=== PATIENT | male | born 1970 | race Caucasian/White ===

== ENCOUNTER 2016-07-05 16:16 | Inpatient (IN) ==
[2016-07-05] MEDS ORDERED: TYLENOL PO ONE (16:22)
[2016-07-05] MEDS ORDERED: TYLENOL ONE (16:22)
[2016-07-05] MEDS ORDERED: NS 1,000 ML IV ONE ×2 (16:23→17:14)
[2016-07-05 16:58] LABS: MANUAL DIFF NEEDED? NO
[2016-07-05 17:05] LABS: BASO% 0.1 % (0.0-0.8); EOS# 0.07 X1000 (0.0-0.7); EOS% 0.4 % (0.0-10.0); HEMATOCRIT 39.8 % (42.0-52.0); HEMOGLOBIN 12.9 g/dL (14.0-18.0); IMM GRAN# 0.04 X1000 (0.0-0.04); IMM GRAN% 0.3 % (0.0-0.5); LYMPH# 1.72 X1000 (1.2-3.4); LYMPH% 10.9 % (20.5-51.1); MCH 25.7 PG (27-31); MCHC 32.4 g/dL (33-37); MCV 79.4 FL (81-99); MONO# 1.86 X1000 (0.11-0.59); MONO% 11.8 % (1.7-9.3); MPV 11.6 FL (7.4-10.4); NEUT% 76.5 % (42.2-75.2); PLT 214 X1000 (130-400); RBC 5.01 XMIL (4.7-6.1)
[2016-07-05] MEDS ORDERED: ZOSYN 3.375 GM/NS 3.375 GM/50 ML IVPB IV ONE (17:14)
[2016-07-05] MEDS ORDERED: VANCOMYCIN 1 GM/NS 1 GM/250 ML IVPB IV ONE (17:14)
--- NOTE | 2016-07-05 17:14 | Diag Imaging Result Document ---
PROCEDURE NAME: CHEST-2 VIEWS - 07/05/2016 CHEST, TWO VIEWS: COMPARISON: 03/10/2016. INDICATION: Sepsis screen. FINDINGS: There is focal airspace opacity involving the left upper lobe posteriorly. Findings are suspicious for pneumonia. Followup is recommended to document complete clearing. There is cardiomegaly. The right lung is clear. No effusion. IMPRESSION: Left upper lobe infiltrate. Followup is recommended to document complete clearing and exclude an underlying parenchymal mass.
[2016-07-05] MEDS ORDERED: ZOFRAN IV PRN ×2 (17:15→18:30)
[2016-07-05] MEDS ORDERED: OFIRMEV 1000 MG/ISOTONIC SOLN 1,000 MG/100 ML BOTTLE IV ONE (17:15)
--- NOTE | 2016-07-05 17:18 | PROVIDER DOCUMENTATION ---
This chart was entered by Tu Devi Scribe, acting as scribe for Jules Nolan PA. HPI-Fever - General Chief Complaint: Fever Stated Complaint: fever x2 days Time Seen by Provider: 07/05/16 16:22 Source: patient Allergies/Adverse Reactions: Patient Allergies Allergy/AdvReac Type Severity Reaction Status Date / Time doxycycline Allergy ABDOMINAL Verified 07/05/16 16:21 PAIN Sulfa (Sulfonamide Allergy RASH Verified 03/10/16 14:55 Antibiotics) sulfamethoxazole Allergy RASH Verified 03/10/16 14:55 [From Bactrim] trimethoprim [From Bactrim] Allergy RASH Verified 03/10/16 14:55 Home Medications: Home Medication List Medication Instructions Recorded Confirmed Last Taken Type Aspirin 81 mg PO DAILY 07/31/14 03/11/16 07/30/14 History Dapsone 25 mg PO DAILY 07/31/14 03/11/16 03/10/16 History Ezetimibe [Zetia] 10 mg PO DAILY 07/31/14 03/11/16 03/10/16 08:00 History Mycophenolate Mofetil [Cellcept] 3 cap PO BID 07/31/14 03/11/16 03/10/16 08:00 History Omeprazole 40 mg PO DAILY 07/31/14 03/11/16 03/10/16 08:00 History Pioglitazone HCl [Actos] 45 mg PO DAILY 07/31/14 03/11/16 07/30/14 History Tacrolimus [Prograf] 3 cap PO BID 07/31/14 03/11/16 03/10/16 08:00 History Metoprolol [Lopressor] 1 tab PO BID 11/03/15 03/11/16 03/10/16 08:00 History ATORVAstatin [Lipitor] 40 mg PO DAILY #30 tablet 03/16/16 Unknown Rx Clopidogrel [Plavix] 75 mg PO DAILY #30 tablet 03/16/16 Unknown Rx Insulin Glargine [Lantus] 55 unit SUBQ QAM #0 insuln.pen 03/16/16 Unknown Rx Lisinopril 5 mg PO DAILY #0 03/16/16 03/11/16 03/10/16 08:00 Rx - History of Present Illness-Fever Nature of Presenting Problem: patient is a 45 y/o M that presents to the ER with fever x 2 days. patient has history of recurrent UTI's due urostomy. patient reports having cough and shortness of breath as well. No AMS, n/v/d, or rashes noted Fever Severity/Quality: reports: greater than 102 F Onset/Duration: reports: gradual, 1-3 hours ago, 2 days ago Timing: reports: constant Severity: reports: moderate, severe Context: reports: indwelling beard (urostomy tube) Recent Illness?: reports: none Cognitive Baseline: alert, oriented x3 Modifying Factors: worse with: coughing Associated Symptoms: reports: cough, fever/chills, genitourinary problems, shortness of breath. denies: chest pain, diarrhea, dizziness, EENT symptoms, joint pain, nausea, rash, sensory/motor loss, vomiting Similar Symptoms Previously?: Yes Recently seen or treated by another doctor?: No Review of Systems - Adult - REVIEW OF SYSTEMS - ADULT Constitutional: reports: chills, fever Eyes: denies: decreased vision, blurred vision, double vision Ears, Nose, Mouth & Throat: denies: ear pain, sinus problem, throat pain Cardiovascular: denies: chest pain, palpitations, syncope Respiratory: reports: cough. denies: shortness of breath, wheezing Gastrointestinal: denies: abdominal pain, diarrhea, nausea, vomiting Genitourinary: reports: dysuria. denies: hesitency, incontinence Musculoskeletal: reports: no symptoms reported Integumentary: reports: no symptoms reported Neurological: reports: no symptoms reported Psychiatric: reports: no symptoms reported Endocrine: reports: no symptoms reported Hematologic/Lymphatic: reports: no symptoms reported Allergic/Immunologic: reports: no symptoms reported All Other Systems: Reviewed and Negative Past History - Adult - PAST MEDICAL HISTORY-ADULT Review of Records: reports: Old Records Reviewed, Nursing Assessment Review, Medications Reviewed Respiratory: reports: COPD Genitourinary: reports: kidney disease, other (urostomy) Endocrine/Immune: reports: Diabetes - PRIOR SURGERIES/PROCEDURES Surgical/Procedure History: reports: indwelling device (urostomy), other ( kidney transplant) - PRIOR HOSPITALIZATIONS Prior Hospitalizations: reports: for other non-related - IMMUNIZATION STATUS Childhood Immunizations: See Nurse Assessment Flu Vaccine: See Nurse Assessment - FAMILY HISTORY Family History: reviewed, not pertinent - SOCIAL HISTORY Smoking: cigarettes, less than 1 pack/day Living Situation: alone Physical Exam-General - PHYSICAL EXAM-ADULT Initial Vital Signs Reviewed: Yes - CONSTITUTIONAL General Appearance: alert, moderate distress, other (chronic ill appearing) - EYES Eyes: PERRL/EOMI, pink conjunctivae - HEAD, EARS, NOSE, MOUTH & THROAT HENMT: normocephalic/atraumatic, moist mucous membranes, normal ENT inspection - NECK Neck: full range of motion, normal inspection. negative: lymphadenopathy - RESPIRATORY Respiratory: no respiratory distress, no accessory muscle use, rhonchi ( scattered bilateral) - CARDIOVASCULAR Cardiovascular: no gallop, no murmur, tachycardia - GASTROINTESTINAL (ABDOMEN) Abdominal Exam: normal bowel sounds, non tender, soft, other (urostomy tube noted) - MUSCULOSKELETAL Extremity: normal range of motion, normal inspection, no pedal edema - SKIN Integumentary: normal color, warm/dry - NEUROLOGIC Neurologic: grossly normal, no motor/sensory deficits - PSYCHIATRIC Psych/Mental Status: normal mood/affect, normal thought content, normal thought process, oriented x 3 Progress - PLAN OF CARE/RESULTS Progress/Plan/Lab Results: Vital Signs - 8 hr 07/05/16 16:17 07/05/16 17:10 Temperature 102.4 F H Pulse Rate 118 H 104 H Respiratory Rate 18 18 Blood Pressure 191/91 130/65 O2 Sat by Pulse Oximetry 93 L 93 L Laboratory Results - last 24 hr 07/05/16 16:40 WBC 15.73 H RBC 5.01 Hgb 12.9 L Hct 39.8 L MCV 79.4 L MCH 25.7 L MCHC 32.4 L RDW Std Deviation 14.7 H Plt Count 214 MPV 11.6 H Immature Gran % (Auto) 0.3 Neut % (Auto) 76.5 H Lymph % (Auto) 10.9 L [place] % (Auto) 11.8 H Eos % (Auto) 0.4 Baso % (Auto) 0.1 Immature Gran # (Auto) 0.04 Neut # (Auto) 12.02 H Lymph # (Auto) 1.72 [place] # (Auto) 1.86 H Eos # (Auto) 0.07 Baso # (Auto) 0.02 Orders Category Date Time Status Admit - [facility] Routine AdmDCTranf 07/05/16 17:15 Ordered Activity - Bed Rest with BRP ORDERED Care 07/05/16 17:15 Active Call Admitting on Arrival AT ADMISSION Care 07/05/16 17:16 Active Saline Loc NOW Care 07/05/16 16:23 Active Vital Signs Order Q 8-HR .ASSESS Care 07/05/16 17:15 Active Heart Healthy Diet Diet 07/05/16 17:16 Active CHEST-2 VIEWS [RAD] Stat Exams 07/05/16 16:23 Draft ABG [RESP] Routine Lab 07/05/16 17:06 Ordered BLOOD CULTURE [BLDCUL] Stat Lab 07/05/16 16:23 Ordered CBC WITH DIFF [HEME] Stat Lab 07/05/16 16:40 Completed COMPREHENSIVE METABOLIC PANEL [CHEM] Stat Lab 07/05/16 16:40 Received LACTATE, PLASMA [CHEM] Stat Lab 07/05/16 16:40 Received MAGNESIUM [CHEM] Stat Lab 07/05/16 16:40 Received PROTIME WITH INR PL [COAG] Stat Lab 07/05/16 16:[address] [COAG] Stat Lab 07/05/16 16:[address] W/POSS RFLX CULT [URINALYSIS] Stat Lab 07/05/16 17:01 Received 0.9% Sodium Chloride Inj [Ns] 1,000 ml Med 07/05/16 17:14 Active IV 100 mls/hr 0.9% Sodium Chloride Inj [Ns] 1,000 ml Med 07/05/16 16:23 Active IV 999 mls/hr Acetaminophen [Ofirmev 1000 mg/Isotonic Soln] Med 07/05/16 17:15 Active 1,000 mg in 100 ml IV NOW Acetaminophen [Tylenol] Med 07/05/16 16:22 Discontinued 1,000 mg .ROUTE .STK-MED ONE Acetaminophen [Tylenol] Med 07/05/16 16:22 Discontinued 1,000 mg PO NOW ONE Acetaminophen [Tylenol] Med 07/05/16 17:15 Active 650 mg PO Q6H PRN PRN Ondansetron [Zofran] Med 07/05/16 17:15 Active 4 mg IV Q4H PRN PRN Piperacil/Tazobact 3.375 gm/Ns [Zosyn 3.375 gm/Ns] 50 Med 07/05/16 17:14 Ordered ml IV NOW Vancomycin 1 gm/Ns Med 07/05/16 17:14 Active 1 gm in 250 ml IV NOW Telemetry [OM.EQ] Routine Oth 07/05/16 17:15 Active Transfer/Admit Order [TRANSFER] Routine Transfer 07/05/16 17:17 Ordered Result Diagrams: 07/05/16 16:40 - XRAY 1 XRAY Study: Chest Impression: Abnormal XRAY Interpretation: JULIEN infiltrate - CONSULTS/PCP/HOSPITALIST Notification #1 *Consult/PCP/Hospitalist*: domestic travel consultant for hospitalist Time Discussed: 17:12 Consult Disposition: Admit Departure - Departure Time of Disposition Decision: 17:17 DIAGNOSIS: Pneumonia Qualifiers: Pneumonia type: due to unspecified organism Laterality: left Lung location: upper lobe of lung Qualified Code(s): J18.1 - Lobar pneumonia, unspecified organism Disposition: ADMITTED INPATIENT 09 Certified Medical Emergency: Emergent Condition: Stable - Critical Care Note This patient required my direct & personal management of CC.: Yes Total Time (mins): 15 Critical Care Statement: This patient required my direct personal management to treat or rule out processes, the absence of which, could potentiallly result in sudden, clinically significant life or limb threatening deterioration. Attestation - Physician/ MORIAH Attestation Patient care was provided by Advanced Practice Provider:: Yes Advanced Practice Provider:: Jules Nolan Advanced Practice Provider documentation review:: The Mid-level provider documentation, treatment plan and medical decision making was reviewed by the physician who agrees with all treatment and medical decision making by the MLP. This chart was documented by the indicated scribe, (Tu Devi, Iram) and accurately reflects the services I performed and decisions made by me, Jules Nolan PA, as attested by the provider's signature.
[2016-07-05 17:19] LABS: BE -5.7 mmoll (-3.0-3.0); BLOOD TYPE ARTERIAL; DRAW SITE R BRACHIAL; METHB 0.9 % (0.0-1.5); O2(CT) 15.2 mL/dL (15.0-23.0); PCO2(98.6) 30 mmHg (35-45); PO2(98.6) 71 mmHg (60-100); SAMPLE BLOOD; SAO2 92.5 % (95.0-100.0); pH(98.6) 7.39 (7.35-7.45)
[2016-07-05 17:21] LABS: ALLEN TEST NO; MODALITY ROOM AIR
[2016-07-05 17:26] LABS: BILIRUBIN URINE NEGATIVE (NEGATIVE); BLOOD URINE 2+ (NEGATIVE); CLARITY VERY CLOUDY (CLEAR); COLOR YELLOW; LEUKOCYTES URINE 2+ (NEGATIVE); NITRITE URINE NEGATIVE (NEGATIVE); PROTEIN URINE 2+(100 mg/dL) mg/dL (NEGATIVE); UROBILINOGEN URINE NORMAL
[2016-07-05 17:30] LABS: URINE CULTURE PL NEEDED? YES; URINE EPITHELIAL CELLS <10 /HPF (<10); URINE RBC <10 /HPF (<10); URINE SOURCE CLEAN CATCH; URINE WBC 20-40 /HPF (<10)
[2016-07-05 17:43] LABS: AGAP 14; ALKALINE PHOSPHATASE 102 U/L (32-122); BUN 22 mg/dL (8-22); CALCIUM 9.9 mg/dL (8.8-10.2); CHLORIDE 89 mmol/L (98-107); COSMO 268; GOT 8 U/L (10-34); GPT 9 U/L (10-44); MAGNESIUM 1.5 mg/dL (1.5-2.7); POTASSIUM 3.9 mmol/L (3.5-5.1); SODIUM 122 mmol/L (136-145); TCO2 18 mmol/L (25-35)
[2016-07-05 17:49] LABS: INR 1.01 (0.86-1.15); PROTIME 13.6 Seconds (12.1-15.5)
[2016-07-05 17:50] LABS: PTT PL 36.5 Seconds (22.6-43.9)
[2016-07-05] MEDS ORDERED: HUMULIN R IV ONE (17:51)
[2016-07-05] MEDS ORDERED: HUMULIN R (PARKWAY) ONE (18:00)
--- NOTE | 2016-07-05 18:29 | HISTORY AND PHYSICAL ---
CHIEF COMPLAINT: Fever and chills, cough, shortness of breath. HISTORY OF PRESENT ILLNESS: This is a 45-year-old male with a prior history of type 2 diabetes, peripheral vascular disease, hyperlipidemia, hypertension, renal transplant in 2004, who presented to the emergency room complaining of 48 hours of fever, chills, cough, and shortness of breath. He states prior to these symptoms he felt like he was in his normal state of health. 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 He does report a temperature higher than 102 at home. He denied any chest pain, palpitations, PND or orthopnea. On arrival, he did have a temperature of 102.4 degrees, with a heart rate of 118, with room air saturations of 93%. Chest x-ray revealed a left upper lobe infiltrate. He was noted to have a white count of 15. Blood cultures and urine cultures were obtained in the emergency room. He was given a liter of fluid bolus, vancomycin and Zosyn, and is being admitted for further evaluation and treatment. PAST MEDICAL HISTORY: Insulin-dependent diabetes mellitus with noncompliance, obstructive sleep apnea, COPD, peripheral vascular disease, hyperlipidemia, hypertension, gastroesophageal reflux disease, congenital kidney disease. PAST SURGICAL HISTORY: Previous vascular dialysis access in his right groin, urostomy as a child, and renal transplant in 2004, femoral-femoral bypass with open thrombectomy of the right superficial femoral artery in March 2016. SOCIAL HISTORY: He smokes 2 packs a day. He drinks 1 or 2 beers a week. He denies illicit drug use. ALLERGIES: Sulfa and IV Bactrim. HOME MEDICATIONS: A list will be obtained. REVIEW OF SYSTEMS: Fourteen point review of systems was discussed with patient, with pertinent positives stated in HPI. He denied chest pain, palpitations, dizziness, syncope, nausea, vomiting, diarrhea, constipation, black or bloody vomitus, black or bloody stools, hematuria, dysuria, frequency, urgency. PHYSICAL EXAMINATION: GENERAL: This is a 45-year-old male, who is lying in the bed, in no distress. VITAL SIGNS: Blood pressure is 130/65, with a heart rate of 104, respirations are 18, oxygen saturation is 93% on room air. HEENT: Head is normocephalic, atraumatic. Pupils equal, round, react to light. EOMs are intact. Sclerae anicteric. Mucous membranes are moist. NECK: Supple with trachea midline. CARDIOVASCULAR: Regular rate and rhythm. Tachycardic. S1 and S2 appreciated. PULMONARY: He does have scattered rhonchi throughout with no increased work of breathing noted. GASTROINTESTINAL: Abdomen is soft, nontender, nondistended with bowel sounds in all 4 quadrants. Urostomy right lower quadrant is intact with stoma pink. EXTREMITIES: No clubbing, cyanosis, or edema. SKIN: Warm and dry. DIAGNOSTIC DATA: WBC is 15.7, with hemoglobin 12.9, hematocrit 39.8, and platelets of 214,000. Sodium is 122, potassium 3.9, BUN 22, creatinine 1.2, with a glucose of 434. Chest x-ray revealed left upper lobe infiltrate. ASSESSMENT: 1. Left upper lobe pneumonia. 2. Fever. 3. Sepsis most likely secondary to #1. 4. Hyponatremia. 5. Diabetes mellitus, uncontrolled, with hyperglycemia. 6. Hypertension. 7. History of chronic obstructive pulmonary disease. 8. Obstructive sleep apnea. 9. Gastroesophageal reflux disease. 10. Status post renal transplant in 2004. 11. Peripheral artery disease status post femoral-femoral bypass with thrombectomy of the right superficial femoral artery in March 2016. PLAN: The patient will be admitted to the hospital. We will give supplemental oxygen. Blood cultures were drawn in the emergency room. A urine culture is pending. He was given vancomycin and Zosyn. We will continue these. We will identify and continue his home medications as appropriate. He will be placed on pattern blood glucose with sliding scale insulin. We will trend labs. We will continue with IV hydration, and replete sodium. Corrected sodium for blood sugar is 129, we will follow labs. He will be placed on telemetry. Further treatments pending hospital course. Dictated by CARLINE Al for Fabrice Almonte MD cc: CARLINE Al MD
[2016-07-05] MEDS ORDERED: VANCOMYCIN IV PER PHARMACY MISC SCH (18:30)
[2016-07-05] MEDS ORDERED: VANCOMYCIN 2,300 MG in NS 500 ML IV ONE (20:00)
[2016-07-05] MEDS: NS 1,000 ML IV SCH (20:00)
[2016-07-05] MEDS: HUMALOG DOSE (PARKWAY) SUBQ SCH (21:57)
[2016-07-05] MEDS: TYLENOL PO PRN (22:02)
[2016-07-05] MEDS ORDERED: NICODERM PATCH TD PRN (23:33)
[2016-07-06] MEDS: ZOSYN 3.375 GM/NS 3.375 GM/50 ML IVPB IV SCH ×3 (02:53→08:12)
[2016-07-06] MEDS: TYLENOL PO PRN ×3 (04:59→16:48)
[2016-07-06] MEDS: HUMALOG DOSE (PARKWAY) SUBQ SCH ×3 (06:20→16:49)
[2016-07-06 07:05] LABS: HEMATOCRIT 35.7 % (42.0-52.0); HEMOGLOBIN 11.2 g/dL (14.0-18.0); MCH 25.1 PG (27-31); MCHC 31.4 g/dL (33-37); MPV 11.7 FL (7.4-10.4); RBC 4.46 XMIL (4.7-6.1)
[2016-07-06 07:24] LABS: AGAP 15; ALBUMIN 3.5 g/dL (3.5-5.0); ALKALINE PHOSPHATASE 97 U/L (32-122); BUN 19 mg/dL (8-22); CHLORIDE 94 mmol/L (98-107); COSMO 269; GOT 11 U/L (10-34); GPT 9 U/L (10-44); MAGNESIUM 1.4 mg/dL (1.5-2.7); POTASSIUM 4.3 mmol/L (3.5-5.1); SODIUM 126 mmol/L (136-145); TCO2 17 mmol/L (25-35); TOTAL PROTEIN 6.4 g/dL (6.3-8.3)
[2016-07-06] MEDS: NS 1,000 ML IV SCH (08:10)
[2016-07-06] MEDS ORDERED: MAGNESIUM SULFATE 2 GM/S.W.I. 2 GM/50 ML IVPB IV ONE (08:22)
--- NOTE | 2016-07-06 08:49 | PROGRESS NOTE ---
DATE: 07/06/2016 SUBJECTIVE: Patient without any new complaints today. He notes that he is feeling a little bit better. Did have a fever yesterday. Had increased cough and congestion yesterday, but notes this morning he actually seems to be turning the corner per his words. States that he is feeling better. He is having less cough. He actually is hungry and wants to eat breakfast. OBJECTIVE: Vital Signs: On physical, T-max 102.7, pulse 95, respiratory 20, BP 157/50, satting 95% on room air. General: Patient is an awake, alert, disheveled-appearing male who is in no current respiratory distress. He is sitting in the bed watching television. HEENT: Normocephalic. Neck: Supple. CV: Regular rate. Chest: Decreased breath sounds bilaterally. No apparent wheezing. Positive rhonchi throughout. No apparent increased work of breathing. Extremities: Moves all extremities. Neurologic: No focal changes. Skin: Warm and dry. No rashes. LABS: WBCs 11, sodium 126, glucose 343, magnesium 1.4. ASSESSMENT: 1. Hypomagnesemia. Will replace. 2. Leukocytosis, improving. 3. Hyponatremia, improving. 4. Sepsis. Continue antibiotics. 5. Left upper lobe pneumonia. 6. Fever. 7. Diabetes. Will continue sliding scale. Continue his home dose of insulin and will follow. 8. History of obstructive sleep apnea. 9. Peripheral artery disease status post femoral bypass with thrombectomy of right superficial femoral artery in March 2016. PLAN: As noted, we will continue vancomycin and Zosyn. Will continue sliding scale insulin. Breathing treatments. We will continue oxygen and further orders as needed. cc: Fabrice Almonte MD
[2016-07-06] MEDS ORDERED: PRILOSEC PO SCH (09:00)
[2016-07-06] MEDS ORDERED: ACTOS PO SCH (09:00)
[2016-07-06] MEDS ORDERED: DAPSONE PO SCH (09:00)
[2016-07-06] MEDS ORDERED: PRINIVIL PO SCH (09:00)
[2016-07-06] MEDS ORDERED: PROGRAF PO SCH (09:00)
[2016-07-06] MEDS ORDERED: ASPIRIN PO SCH (09:00)
[2016-07-06] MEDS ORDERED: CELLCEPT PO SCH (09:00)
[2016-07-06] MEDS ORDERED: VANCOMYCIN 1,700 MG in NS 250 ML IV SCH (14:00)
[2016-07-06] MEDS ORDERED: MERREM 1 GM in NS 50 ML IV SCH (15:00)
[2016-07-06 15:55] LABS: BLOOD TYPE ARTERIAL; DRAW SITE R BRACHIAL; METHB 0.8 % (0.0-1.5); O2(CT) 15.4 mL/dL (15.0-23.0); PCO2(98.6) 26 mmHg (35-45); PO2(98.6) 83 mmHg (60-100); SAMPLE BLOOD; SAO2 93.1 % (95.0-100.0); THB 11.8 g/dL (11.5-17.4); pH(98.6) 7.46 (7.35-7.45)
[2016-07-06 15:57] LABS: MODALITY ROOM AIR
--- NOTE | 2016-07-06 16:09 | Diag Imaging Result Document ---
PROCEDURE NAME: CHEST-2 VIEWS - 07/06/2016 FRONTAL AND LATERAL CHEST, 2 VIEWS: FINDINGS: There is a dense infiltrate in the mid left lung. I believe this is in the superior segment of the left lower lobe. This is larger than it was on the prior exam. The right lung remains well expanded and clear. The heart is mildly enlarged. The vessels are not distended. No pleural effusions. IMPRESSION: Overall worsening in the left lower lobe.
[2016-07-06] MEDS ORDERED: MOTRIN PO ONE (16:27)
[2016-07-06] MEDS ORDERED: 1/2 NS 1,000 ML IV SCH (19:13)
[2016-07-06] MEDS ORDERED: APRESOLINE IV PRN (19:14)
[2016-07-06] MEDS ORDERED: OFIRMEV 1000 MG/ISOTONIC SOLN 1,000 MG/100 ML BOTTLE IV PRN (19:25)
[2016-07-06] MEDS ORDERED: ZOFRAN IV PRN (19:42)
[2016-07-06] MEDS ORDERED: INSULIN PEN NEEDLES ONE (20:42)
[2016-07-06] MEDS: CELLCEPT PO SCH (20:44)
[2016-07-06] MEDS: LANTUS SUBQ SCH (20:44)
[2016-07-06] MEDS: PRINIVIL PO SCH (20:45)
[2016-07-06] MEDS: ZOCOR PO SCH (20:45)
[2016-07-06] MEDS: ZYVOX PO SCH (20:45)
[2016-07-06] MEDS: PROGRAF PO SCH (20:45)
[2016-07-06] MEDS ORDERED: LANTUS INSULIN (PARKWAY) SUBQ SCH (21:00)
[2016-07-06] MEDS ORDERED: ZOCOR PO SCH (21:00)
[2016-07-06] MEDS ORDERED: ZYVOX PO SCH (21:00)
[2016-07-06] MEDS: HUMALOG SUBQ SCH (22:00)
[2016-07-06] MEDS: MERREM 1 GM in NS 50 ML IV SCH (22:22)
[2016-07-07] MEDS: HUMALOG SUBQ SCH ×4 (06:56→20:02)
[2016-07-07] MEDS: NS 1,000 ML IV SCH ×3 (06:58→21:22)
[2016-07-07 07:04] LABS: HEMATOCRIT 33.7 % (42.0-52.0); HEMOGLOBIN 10.5 g/dL (14.0-18.0); MCH 25.4 PG (27-31); MCHC 31.2 g/dL (33-37); MCV 81.6 FL (81-99); MPV 11.4 FL (7.4-10.4); RBC 4.13 XMIL (4.7-6.1)
[2016-07-07] MEDS: PRILOSEC PO SCH (07:08)
[2016-07-07] MEDS: MERREM 1 GM in NS 50 ML IV SCH ×2 (07:09→15:39)
[2016-07-07 07:25] LABS: AGAP 14; ALBUMIN 2.8 g/dL (3.5-5.0); BUN 20 mg/dL (8-22); CALCIUM 8.4 mg/dL (8.8-10.2); CHLORIDE 97 mmol/L (98-107); COSMO 269; POTASSIUM 4.4 mmol/L (3.5-5.1); SODIUM 128 mmol/L (136-145); TCO2 17 mmol/L (25-35)
--- NOTE | 2016-07-07 07:47 | CONSULTATION ---
DATE OF CONSULTATION: 07/07/2016 CONCLUSION: The patient has a pneumonia. He has been having fever and the latest chest x-ray showed increase in the patient's infiltrate. RECOMMENDATIONS: Yesterday I ordered that the patient should be switched to a combination of Zyvox and meropenem. This was done yesterday late in the evening and then the patient was transferred from [place] to [facility]. DISCUSSION: The patient approximately 4 days ago started having fever and cough. He did not produce much in the way of sputum. He also was dyspneic. He initially was admitted to [place] and as mentioned above, was transferred last night. LABORATORY: The patient's studies thus far show a CBC with a white count of 11,930, hemoglobin 11.2, and platelet count 191,000. Blood cultures are sterile. Sputum and urine cultures are pending. Chest x-ray shows worsening left lung infiltrate. The patient's creatinine is 1.1. GFR is greater than 60. The patient's blood gases show a pH of 7.46, a PO2 of 83, and a pCO2 of 26. PAST MEDICAL HISTORY/REVIEW OF SYSTEMS: Eyes and ears: Patient denies difficulty hearing or seeing. Neck: No stiffness. Respiratory: See present illness. Cardiovascular: No chest pain or palpitations. GI: No nausea, vomiting, or diarrhea. : The patient has a urostomy in place. He has a transplanted kidney. Neurologic: No seizures. The patient has numbness in his left leg. Endocrine: The patient does have diabetes but not thyroid disease. Hematologic: The patient has been anemic in the past. He does not have a bleeding tendency. The remainder of the patient's review of systems was completed and was negative. PREVIOUS HOSPITALIZATIONS AND OPERATIONS: He has had placement of a vascular dialysis catheter in the right groin which has subsequently been removed since the patient had his transplant. He had a urostomy as a child. He had a renal transplant. The patient had surgery on his right leg for peripheral vascular disease. It was a [id number] bypass with open thrombectomy of the right superficial femoral artery. MEDICAL DISEASES: Positive for diabetes mellitus, obstructive sleep apnea, COPD, peripheral vascular disease, hyperlipidemia, hypertension, gastroesophageal reflux disease, and congenital kidney disease. FAMILY HISTORY: Positive for diabetes mellitus, hypertension, stroke, and cancer. INFECTIOUS DISEASE HISTORY: Positive for pneumonia and UTI. SOCIAL HISTORY: [place] He has dogs and a bird for a pet. He smokes cigarettes. He drinks beer. He denied drug abuse. The patient does not have a job. PHYSICAL EXAMINATION: Vital Signs: Temperature is 100.6 degrees, pulse 100, respirations 21, blood pressure 158/64. General: This is a fairly healthy-appearing, young male. He is in no acute distress at this time. Lungs: Clear to auscultation. Cardiovascular: Regular heart rate. Abdomen: Patient has a urostomy in place. The abdomen is soft and nontender. Head, eyes, ears, nose, and throat: He can hear my spoken words and see near objects. No drainage is noted from the nose or ears. In his mouth there were no white patches. Neck: No meningismus. Integument: No rash is noted. Neurologic: Patient is awake. He can move his extremities. There is no tremor. His sensation is intact to touch. His memory as regarding his medical history was decreased. Thank you for the consult. cc: MD Alonzo Steele MD
[2016-07-07] MEDS: ACTOS PO SCH (10:44)
[2016-07-07] MEDS: PROGRAF PO SCH ×2 (10:44→20:05)
[2016-07-07] MEDS: ASPIRIN PO SCH (10:44)
[2016-07-07] MEDS: PRINIVIL PO SCH ×2 (10:45→20:06)
[2016-07-07] MEDS: ZYVOX PO SCH ×2 (10:45→20:06)
[2016-07-07] MEDS: CELLCEPT PO SCH ×2 (10:45→20:04)
[2016-07-07] MEDS: DAPSONE PO SCH (10:46)
[2016-07-07] MEDS: NICODERM PATCH TD PRN (10:52)
[2016-07-07] MEDS ORDERED: LASIX IV ONE (12:46)
--- NOTE | 2016-07-07 13:00 | Diag Imaging Result Document ---
PROCEDURE NAME: CHEST-2 VIEWS - 07/07/2016 PA AND LATERAL RADIOGRAPH OF THE CHEST: COMPARISON: 07/06/2016. FINDINGS: The dense consolidation in the left mid lung zone is unchanged. No new consolidations are identified. Cardiac silhouette is prominent but stable. IMPRESSION: Stable chest.
[2016-07-07 14:03] LABS: ALLEN TEST YES
--- NOTE | 2016-07-07 14:06 | PROGRESS NOTE ---
DATE: 07/07/2016 SUBJECTIVE: This patient feels about the same compared with yesterday. He is still complaining of fever, chills, and cough. He denies nausea, vomiting, diarrhea, constipation. No chest pain. No shortness of breath. OBJECTIVE: Vital Signs: Temperature 98.5 degrees, pulse 89, respiratory rate 18, blood pressure 147/65, oxygen saturation 98 on 4 L of nasal cannula. HEENT: Head normocephalic. No trauma. PERRLA. Neck: Supple. No JVD. No masses. Central trachea. Cardiovascular: RRR. No murmurs. Chest: Decreased breath sounds at the bases with rhonchi bilaterally but mostly in the left upper and middle lung. Extremities: No edema. No clubbing. No cyanosis. Neurological: The patient is alert and oriented x3. No focal neurological deficits. LABORATORY: WBC 13, hemoglobin 10.5, hematocrit 33.7, platelet 185,000. Sodium 128, potassium 4.4, chloride 97, bicarbonate 17, BUN 20, creatinine 1, glucose 267, calcium 8.4, albumin 2.8. ASSESSMENT AND PLAN: 1. Sepsis. Infectious disease department is on board. We will continue with the same antibiotics for this moment. 2. Hyponatremia. This is getting better. We will continue with the same management. 3. Left upper lobe pneumonia. Continue with the same antibiotics. 4. Diabetes. This patient has been placed on sliding scale insulin and pattern of blood sugar. Will monitor. 5. History of obstructive sleep apnea. Aware. 6. History of kidney transplant. This patient has a congenital kidney disease. No kidney injury at this moment. We will continue with the same management. cc: Alonzo Mcgregor MD
--- NOTE | 2016-07-07 14:53 | CONSULTATION ---
DATE OF CONSULTATION: 07/07/2016 REASON FOR CONSULTATION: Community-acquired pneumonia in a patient who is immunocompromised. REQUESTING PHYSICIAN: Dr. Fabrice Almonte. HISTORY OF PRESENT ILLNESS: Mr. Nuñez is a 45-year-old white male with diabetes mellitus, status post renal transplant on chronic immunosuppression, who presented to the hospital with a 2-day history of shaking chills, fever of 102.6 degrees, cough, and shortness of breath. Chest x-ray revealed infiltrate in the superior segment of the left lower lobe. Pulmonary consultation was requested. PAST MEDICAL HISTORY: 1. COPD (PFTs not available for confirmation). 2. Diabetes mellitus. 3. Obstructive sleep apnea. 4. Gastroesophageal reflux disease. 5. Status post renal transplantation. 6. Peripheral vascular disease. SOCIAL HISTORY: Ongoing daily tobacco use. Frequent alcohol use. FAMILY HISTORY: Noncontributory to the current presentation. REVIEW OF SYSTEMS: As noted in the HPI. PHYSICAL EXAMINATION: General: A healthy-appearing white male, resting comfortably, and in no distress. Vital Signs: Blood pressure 147/67, heart rate 89, respiration rate 18, oxygen saturation 98% on nasal cannula. HEENT: Pupils are equal and reactive. Oropharynx is clear. Neck: Supple. Chest: Reveals good air entry bilaterally. No definite E to A changes are appreciated. Occasional rhonchi can be heard with cough. Cardiac: Regular rate. Normal S1, normal S2. Abdomen: Soft and without hepatosplenomegaly. Extremities: Without edema. LABORATORY AND IMAGING: Chest x-ray reveals progressive consolidation of the superior segment of the left lower lobe. White blood count 13.08, hemoglobin 10.5, platelet count 185,000. Sodium 128, potassium 4.4, chloride 97, bicarbonate 17, BUN 20, creatinine 1.0. Cultures reveal a Gram-negative roma in the urine. Blood cultures and sputum cultures are pending. IMPRESSION: A 45-year-old immunocompromised host with acute febrile illness, consolidation of the superior segment of the left lower lobe, and leukocytosis. His presentation is most consistent with a community-acquired pneumonia. He has been initiated on antibiotics by Dr. Ced Benton. The patient will be initiated on bronchial hygiene to include incentive spirometry and nebulizer therapy. His course will be followed. If he does not improve in the expected time frame, more aggressive evaluation will be pursued at that time. cc: Fredis Prater MD
[2016-07-07] MEDS: DUONEB (A & A) INH SCH ×4 (15:01→23:32)
[2016-07-07] MEDS ORDERED: NS 1,000 ML IV ONE (18:15)
[2016-07-07] MEDS: ZOCOR PO SCH (20:05)
[2016-07-07] MEDS: LANTUS SUBQ SCH (20:06)
[2016-07-07] MEDS ORDERED: NORCO-5 PO ONE (23:58)
[2016-07-08] MEDS: DUONEB (A & A) INH SCH ×6 (04:12→23:15)
[2016-07-08] MEDS: MERREM 1 GM in NS 50 ML IV SCH ×5 (06:20→23:05)
[2016-07-08] MEDS: HUMALOG SUBQ SCH ×3 (06:21→21:53)
[2016-07-08] MEDS: PRILOSEC PO SCH (06:21)
[2016-07-08 06:29] LABS: MANUAL DIFF NEEDED? NO
[2016-07-08 06:46] LABS: BASO% 0.2 % (0.0-0.8); EOS# 0.04 X1000 (0.0-0.7); EOS% 0.4 % (0.0-10.0); HEMATOCRIT 31.6 % (42.0-52.0); HEMOGLOBIN 10.1 g/dL (14.0-18.0); IMM GRAN# 0.05 X1000 (0.0-0.04); IMM GRAN% 0.4 % (0.0-0.5); LYMPH# 1.64 X1000 (1.2-3.4); LYMPH% 14.4 % (20.5-51.1); MCH 25.6 PG (27-31); MONO# 1.57 X1000 (0.11-0.59); MONO% 13.8 % (1.7-9.3); MPV 11.2 FL (7.4-10.4); NEUT% 70.8 % (42.2-75.2); PLT 190 X1000 (130-400); RBC 3.95 XMIL (4.7-6.1)
[2016-07-08 06:58] LABS: HEMOGLOBIN A1C 10.9 % (4.8-6.0)
[2016-07-08 07:04] LABS: AGAP 13; BUN 22 mg/dL (8-22); CALCIUM 8.1 mg/dL (8.8-10.2); CHLORIDE 93 mmol/L (98-107); COSMO 266; POTASSIUM 4.1 mmol/L (3.5-5.1); SODIUM 125 mmol/L (136-145); TCO2 19 mmol/L (25-35)
[2016-07-08] MEDS ORDERED: LANTUS SUBQ SCH (08:07)
[2016-07-08] MEDS: PRINIVIL PO SCH ×2 (11:22→20:22)
[2016-07-08] MEDS: NICODERM PATCH TD PRN (11:22)
[2016-07-08] MEDS: PROGRAF PO SCH ×2 (11:23→20:21)
[2016-07-08] MEDS: CELLCEPT PO SCH ×2 (11:23→20:20)
[2016-07-08] MEDS: ZYVOX PO SCH ×2 (11:23→20:21)
[2016-07-08] MEDS: DAPSONE PO SCH (11:24)
[2016-07-08] MEDS: ACTOS PO SCH (11:24)
[2016-07-08] MEDS: ASPIRIN PO SCH (11:24)
[2016-07-08] MEDS: NS 1,000 ML IV SCH ×4 (11:25→20:20)
[2016-07-08] MEDS: TYLENOL PO PRN ×2 (14:23→21:24)
--- NOTE | 2016-07-08 14:46 | PROGRESS NOTE ---
DATE: 07/08/2016 SUBJECTIVE: This patient feels a little bit better today. He is still complaining about fever and chills. He denies nausea, vomiting, diarrhea, or constipation. No chest pain. Mild shortness of breath. OBJECTIVE: Vital Signs: Temperature 101.1 degrees, pulse 113, respiratory rate 24, blood pressure 170/69, oxygen saturation 96% on nasal cannula at 3L. HEENT: Head normocephalic. No trauma. PERRLA. Neck: Supple. No JVD. No masses. Central trachea. Cardiovascular: RRR. No murmurs. Tachycardic. Chest: Decreased breath sounds at the bases with rhonchi bilaterally, but mostly at the level of the left upper and middle lung. Extremities: No edema. No clubbing. No cyanosis. Neurological: The patient is alert and oriented x3. No focal deficits. LABORATORY: WBC 11.3, hemoglobin 10.1, hematocrit 31.6, platelets 190,000. Sodium 125, potassium 4.1, chloride 93, bicarbonate 19, BUN 22, creatinine 1.1, glucose 291, calcium 8.1. ASSESSMENT AND PLAN: 1. Sepsis. The Infectious Disease Department is on board. We will continue with the same antibiotics for this moment. This is likely secondary to the left upper lobe pneumonia. 2. Hyponatremia. This patient is not having any altered mental status. I checked back on his laboratory work and it looks like his sodium has been low before. 3. Left upper lobe pneumonia. Continue with the antibiotics. 4. Diabetes. I will readjust the dose of Lantus. I will increase the Lantus to 80 once a day and I will continue to monitor the blood sugar. 5. History of obstructive sleep apnea. Aware. 6. History of kidney transplant. This patient has a congenital kidney disease. No kidney injury at this moment. We will continue with the same management. cc: Alonzo Mcgregor MD
--- NOTE | 2016-07-08 17:08 | PROGRESS NOTE ---
DATE: 07/08/2016 CONCLUSION: The patient has a left lung pneumonia. He also has an extended spectrum beta lactamase producing Escherichia coli urinary tract infection. PRESENT ILLNESS: The patient has a pneumonia and an extended spectrum beta lactamase producing E coli urinary tract infection. MEDICATIONS: The patient is receiving a combination of meropenem and Zyvox. PHYSICAL EXAMINATION: Vital Signs: Temperature is 101.1, pulse 110, 0 degrees his 101.1, pulse 110, respirations 22, blood pressure 170/69. Generally: This is an ill-appearing, young male. He is in no acute distress. Lungs: Clear to auscultation. Cardiovascular: Regular and rapid heart rate. Abdomen: Soft and nontender. Neurologic: The patient is alert. He is talking. There is no tremor. LAB AND X-RAY: Chest x-ray shows a left-sided consolidation. Blood cultures are negative. Sputum is growing normal sierra. Urine is growing an extended spectrum beta lactamase producing E coli. The patient's CBC today shows a white count of 11,370, hemoglobin 10.1, and platelet count 190,000. Creatinine is 1.1. GFR is greater than 60. Screen for influenza A and B was negative. ASSESSMENT AND PLAN: I am going to continue the patient's 2 antibiotics, namely, meropenem and Zyvox, for the patient's urinary tract infection and pneumonia. COMORBIDITIES: Include, the main one is he is a renal transplant patient and is on immunosuppressive medications. Patient also has obstructive sleep apnea, COPD, peripheral vascular disease, gastroesophageal reflux disease, and congenital kidney disease. cc: Ced Benton MD
[2016-07-08] MEDS: ZOCOR PO SCH (20:20)
[2016-07-09] MEDS: DUONEB (A & A) INH SCH ×6 (04:28→23:30)
[2016-07-09] MEDS: PRILOSEC PO SCH (05:59)
[2016-07-09] MEDS: MERREM 1 GM in NS 50 ML IV SCH ×3 (05:59→23:36)
[2016-07-09] MEDS: HUMALOG SUBQ SCH ×4 (05:59→21:50)
[2016-07-09 06:33] LABS: MANUAL DIFF NEEDED? NO
[2016-07-09 06:39] LABS: BASO% 0.1 % (0.0-0.8); EOS# 0.07 X1000 (0.0-0.7); EOS% 0.6 % (0.0-10.0); HEMATOCRIT 31.7 % (42.0-52.0); HEMOGLOBIN 10.1 g/dL (14.0-18.0); IMM GRAN# 0.09 X1000 (0.0-0.04); IMM GRAN% 0.8 % (0.0-0.5); LYMPH# 1.98 X1000 (1.2-3.4); LYMPH% 17.4 % (20.5-51.1); MCH 25.4 PG (27-31); MCHC 31.9 g/dL (33-37); MCV 79.6 FL (81-99); MONO# 1.32 X1000 (0.11-0.59); MONO% 11.6 % (1.7-9.3); MPV 10.8 FL (7.4-10.4); NEUT% 69.5 % (42.2-75.2); PLT 225 X1000 (130-400); RBC 3.98 XMIL (4.7-6.1)
[2016-07-09 06:56] LABS: AGAP 13; BUN 18 mg/dL (8-22); CALCIUM 8.1 mg/dL (8.8-10.2); CHLORIDE 97 mmol/L (98-107); COSMO 266; POTASSIUM 4.2 mmol/L (3.5-5.1); SODIUM 127 mmol/L (136-145); TCO2 17 mmol/L (25-35)
[2016-07-09] MEDS: ASPIRIN PO SCH (09:00)
[2016-07-09] MEDS: PROGRAF PO SCH ×2 (09:00→21:01)
[2016-07-09] MEDS: NS 1,000 ML IV SCH ×2 (09:00→17:00)
[2016-07-09] MEDS: ACTOS PO SCH (09:00)
[2016-07-09] MEDS: ZYVOX PO SCH ×2 (09:00→21:01)
[2016-07-09] MEDS: DAPSONE PO SCH (09:00)
[2016-07-09] MEDS: CELLCEPT PO SCH ×2 (09:00→21:01)
[2016-07-09] MEDS: PRINIVIL PO SCH ×2 (09:00→21:01)
--- NOTE | 2016-07-09 12:25 | Diag Imaging Result Document ---
PROCEDURE NAME: CHEST-2 VIEWS - 07/09/2016 PA AND LATERAL RADIOGRAPH OF THE CHEST: COMPARISON: 07/07/2016. FINDINGS: The consolidation on the left is stable. There is increasing opacity in the right mid and lower lung zone as well as compared to the previous study but also suggest consolidation. Cardiac silhouette is stable. IMPRESSION: Bilateral consolidation that appears to be stable on the left and new on the right.
--- NOTE | 2016-07-09 14:35 | PROGRESS NOTE ---
DATE: 07/09/2016 SUBJECTIVE: This patient feels better, he is still complaining about fever and chills. He denies nausea, vomiting, diarrhea, constipation. He is still complaining also about cough. OBJECTIVE: Vital Signs: Temperature 100.5 degrees, pulse 88, respiratory rate 26, blood pressure 153/69, oxygen saturation 97% on nasal cannula. HEENT: Head normocephalic. No trauma. PERRLA. Neck: Supple. No JVD. No masses. Central trachea. Cardiovascular: RRR. No murmurs. Tachycardic. Chest: Decreased breath sounds at the bases with rhonchi bilaterally but mostly at the level of the left upper and middle lung. Extremities: No edema. No clubbing. No cyanosis. Neurological: The patient is alert and oriented x3. No focal neurological deficits. DIAGNOSTIC DATA: Chest x-ray showed a stable left consolidation and probably there is a new right consolidation. Laboratory: WBC 11.3, hemoglobin 10.1, hematocrit 31.7, platelets 225,000. Sodium 127, potassium 4.2, chloride 97, bicarbonate 17, BUN 18, creatinine 1, glucose 256, calcium 8.1. ASSESSMENT AND PLAN: 1. Sepsis, Infectious Disease Department is on board as well as Pulmonary Department. We will continue with the same antibiotics. This patient is feeling better but he is still complaining about fever and cough. 2. Hyponatremia without any changes in mental status. I checked back on his lab work and it looks like his sodium has been low before, probably this is chronic. 3. Left upper lobe pneumonia and probably there is a new right side consolidation. Continue with antibiotics. 4. Diabetes. I adjusted again the dose of Lantus today. We will continue to monitor the blood sugar. 5. History of obstructive sleep apnea. Aware. 6. History of kidney transplant, this patient is on immunosuppressive medication. He has a congenital kidney disease. No kidney injury at this moment. We will continue with the same management. cc: Alonzo Mcgregor MD
[2016-07-09] MEDS: TESSALON PO SCH (16:04)
[2016-07-09] MEDS: ZOCOR PO SCH (21:01)
[2016-07-09] MEDS: LANTUS SUBQ SCH (21:01)
[2016-07-09] MEDS: TYLENOL PO PRN (21:01)
[2016-07-10] MEDS: NS 1,000 ML IV SCH ×3 (00:18→13:25)
[2016-07-10] MEDS: DUONEB (A & A) INH SCH ×6 (04:43→23:11)
[2016-07-10] MEDS: MERREM 1 GM in NS 50 ML IV SCH ×3 (05:59→22:44)
[2016-07-10] MEDS: PRILOSEC PO SCH (05:59)
[2016-07-10] MEDS: HUMALOG SUBQ SCH ×4 (06:21→21:36)
[2016-07-10 07:23] LABS: MANUAL DIFF NEEDED? NO
[2016-07-10 07:34] LABS: BASO% 0.2 % (0.0-0.8); EOS# 0.31 X1000 (0.0-0.7); EOS% 3.3 % (0.0-10.0); HEMATOCRIT 31.9 % (42.0-52.0); HEMOGLOBIN 10.1 g/dL (14.0-18.0); IMM GRAN# 0.15 X1000 (0.0-0.04); IMM GRAN% 1.6 % (0.0-0.5); LYMPH% 16.8 % (20.5-51.1); MCH 25.3 PG (27-31); MCHC 31.7 g/dL (33-37); MCV 79.9 FL (81-99); MONO# 1.16 X1000 (0.11-0.59); MONO% 12.2 % (1.7-9.3); MPV 10.8 FL (7.4-10.4); NEUT% 65.9 % (42.2-75.2); PLT 257 X1000 (130-400); RBC 3.99 XMIL (4.7-6.1)
[2016-07-10 08:02] LABS: AGAP 10; BUN 18 mg/dL (8-22); CALCIUM 8.9 mg/dL (8.8-10.2); CHLORIDE 101 mmol/L (98-107); COSMO 274; POTASSIUM 4.8 mmol/L (3.5-5.1); SODIUM 132 mmol/L (136-145); TCO2 21 mmol/L (25-35)
--- NOTE | 2016-07-10 09:10 | Diag Imaging Result Document ---
PROCEDURE NAME: CHEST-1 VIEW - 07/10/2016 SINGLE FRONTAL RADIOGRAPH OF THE CHEST: COMPARISON: 07/09/2016. FINDINGS: Infiltrate on the right appears to have improved during the interval. The infiltrate on the left is stable or perhaps marginally improved at the left upper lung zone. No new consolidations are identified. Cardiac silhouette is stable. IMPRESSION: Suggestion of bilateral improvement of consolidations.
[2016-07-10] MEDS: CELLCEPT PO SCH ×2 (09:57→21:34)
[2016-07-10] MEDS: PRINIVIL PO SCH ×2 (09:57→21:33)
[2016-07-10] MEDS: PROGRAF PO SCH ×2 (09:58→21:33)
[2016-07-10] MEDS: TESSALON PO SCH ×3 (09:59→16:46)
[2016-07-10] MEDS: ZYVOX PO SCH ×2 (09:59→21:33)
[2016-07-10] MEDS: DAPSONE PO SCH (09:59)
[2016-07-10] MEDS: ASPIRIN PO SCH (09:59)
[2016-07-10] MEDS: ACTOS PO SCH (09:59)
[2016-07-10] MEDS: APRESOLINE PO SCH ×3 (10:02→16:46)
--- NOTE | 2016-07-10 15:17 | PROGRESS NOTE ---
DATE: 07/10/2016 SUBJECTIVE: This patient feels better. He is not complaining about fever today. He denies any nausea, vomiting, diarrhea, constipation. He is still having cough. OBJECTIVE: Vital Signs: Temperature 98.2 degrees, pulse 86, respiratory rate 17, blood pressure 159/70, O2 saturation 96 on 3 L of nasal cannula. HEENT: Head normocephalic. No trauma. PERRLA. Neck: Supple. No JVD. No masses. Central trachea. Cardiovascular: RRR. No murmurs. No gallops. No rubs. Chest: Decreased breath sounds at the bases with rhonchi bilaterally but mostly at the level of the left upper and middle lung. Extremities: No edema. No clubbing. No cyanosis. Neurological: The patient is alert and oriented x3. No focal neurological deficits. LABORATORY: WBC 9.5, hemoglobin 10.1, hematocrit 31.9, platelets 257,000. Sodium 132, potassium 4.8, chloride 101, bicarbonate 21, BUN 18, creatinine 1, glucose 230, calcium 8.9. ASSESSMENT AND PLAN: 1. Sepsis improved, leukocytes are better and vital signs are better, this patient is getting better. Will continue with the same treatment. Infectious Disease Department and Pulmonary Department are following this patient. We will continue following their recommendations. 2. Hyponatremia without any changes in mental status. I checked back his lab work and it looks like his sodium has been chronically low. The sodium today is better. Will continue to monitor. 3. Left upper lobe pneumonia and right side consolidation likely infectious as well. Continue with antibiotics. Today we did a an x-ray that showed improvement of the infiltrates. 4. Diabetes. The dose of Lantus was adjusted yesterday. The blood sugar is still a little bit high. I will continue to monitor this patient 1 more day. 5. History of obstructive sleep apnea. Aware. 6. History of kidney transplant. This patient is on immunosuppressive medication. He has a congenital kidney disease. No kidney injury at this moment. Will continue with the same management for now. cc: Alonzo Mcgregor MD
[2016-07-10] MEDS: MIRALAX PO SCH (17:40)
[2016-07-10] MEDS: COLACE PO SCH ×2 (17:40→21:34)
[2016-07-10] MEDS: LOVENOX SUBQ SCH (17:41)
[2016-07-10] MEDS: ZOCOR PO SCH (21:33)
[2016-07-10] MEDS: LANTUS SUBQ SCH (21:34)
[2016-07-11] MEDS: DUONEB (A & A) INH SCH ×6 (03:52→23:00)
[2016-07-11] MEDS: NS 1,000 ML IV SCH ×3 (05:18→22:48)
[2016-07-11] MEDS: HUMALOG SUBQ SCH ×5 (05:59→21:45)
[2016-07-11] MEDS: PRILOSEC PO SCH (06:03)
[2016-07-11] MEDS: MERREM 1 GM in NS 50 ML IV SCH ×3 (06:04→22:46)
[2016-07-11 07:02] LABS: MANUAL DIFF NEEDED? NO
[2016-07-11 07:12] LABS: BASO% 0.2 % (0.0-0.8); EOS# 0.64 X1000 (0.0-0.7); HEMATOCRIT 32.2 % (42.0-52.0); HEMOGLOBIN 10.1 g/dL (14.0-18.0); IMM GRAN# 0.24 X1000 (0.0-0.04); IMM GRAN% 2.6 % (0.0-0.5); LYMPH# 2.17 X1000 (1.2-3.4); LYMPH% 23.6 % (20.5-51.1); MCH 25.2 PG (27-31); MCHC 31.4 g/dL (33-37); MCV 80.3 FL (81-99); MONO# 0.94 X1000 (0.11-0.59); MONO% 10.2 % (1.7-9.3); MPV 10.5 FL (7.4-10.4); NEUT% 56.4 % (42.2-75.2); PLT 295 X1000 (130-400); RBC 4.01 XMIL (4.7-6.1)
[2016-07-11 07:26] LABS: AGAP 10; BUN 18 mg/dL (8-22); CALCIUM 8.8 mg/dL (8.8-10.2); CHLORIDE 102 mmol/L (98-107); COSMO 267; POTASSIUM 4.2 mmol/L (3.5-5.1); SODIUM 131 mmol/L (136-145); TCO2 19 mmol/L (25-35)
--- NOTE | 2016-07-11 09:16 | Diag Imaging Result Document ---
PROCEDURE NAME: CHEST-1 VIEW - 07/11/2016 PORTABLE CHEST X-RAY, 07/11/2016: COMPARISON: 07/10/2016. FINDINGS: Stable cardiomegaly and mild pulmonary vascular congestion. No focal infiltrates, pneumothorax, or pleural effusion. IMPRESSION: Cardiomegaly and mild pulmonary vascular congestion.
[2016-07-11] MEDS: MIRALAX PO SCH (09:17)
[2016-07-11] MEDS: ASPIRIN PO SCH (09:18)
[2016-07-11] MEDS: CELLCEPT PO SCH ×2 (09:18→20:35)
[2016-07-11] MEDS: APRESOLINE PO SCH ×3 (09:18→17:11)
[2016-07-11] MEDS: ACTOS PO SCH (09:18)
[2016-07-11] MEDS: PRINIVIL PO SCH ×2 (09:18→20:35)
[2016-07-11] MEDS: DAPSONE PO SCH (09:18)
[2016-07-11] MEDS: COLACE PO SCH ×2 (09:19→20:35)
[2016-07-11] MEDS: PROGRAF PO SCH ×2 (09:19→20:34)
[2016-07-11] MEDS: TESSALON PO SCH ×3 (09:19→17:11)
[2016-07-11] MEDS: ZYVOX PO SCH ×2 (09:19→20:35)
[2016-07-11] MEDS ORDERED: LASIX IV ONE (11:16)
[2016-07-11] MEDS ORDERED: INSULIN PEN NEEDLES ONE (13:50)
[2016-07-11] MEDS: LOVENOX SUBQ SCH (14:29)
--- NOTE | 2016-07-11 16:52 | PROGRESS NOTE ---
DATE: 07/11/2016 SUBJECTIVE: This patient states that he is feeling better. He is not complaining about fever for the past 48 hours. He denies any nausea, vomiting, diarrhea, constipation. He is still having cough and generalized weakness. OBJECTIVE: Vital Signs: Temperature 97.4 degrees, pulse 81, respiratory rate 18, blood pressure 152/71, O2 saturation 94 on room air. HEENT: Head normocephalic. No trauma. PERRLA. Neck: Supple. No JVD. No masses. Central trachea. Cardiovascular: RRR. No murmurs. No gallops or rubs. Chest: Decreased breath sounds at the bases with rhonchi bilaterally but mostly at the level of the left upper and middle lung. Extremities: No edema. No clubbing. No cyanosis. Neurological: The patient is alert and oriented x3. No focal neurological deficits. Abdomen: Soft. He has a urostomy bag that is working fine. LABORATORY: WBC 9.1, hemoglobin 10.1, hematocrit 32.2, platelets 295,000. Sodium 131, potassium 4.2, chloride 102, bicarbonate 19, BUN 18, creatinine 0.9, glucose 137, calcium 8.8. ASSESSMENT AND PLAN: 1. Sepsis improved. Leukocytes are normal today. He has been without fever for the past 2 days. I will continue with antibiotics. This patient has been on immunosuppressive medication. Infectious Disease Department and Pulmonary Department are following this patient. Will continue following the recommendation. I do believe that tomorrow in 1 or 2 days this patient can be discharged safely. 2. Hyponatremia without changes in mental status. I checked back his lab work and it looks like this patient has been having low sodium chronically. Will continue to monitor. Stable. 3. Left upper lobe pneumonia and right side consolidation likely infectious as well. Today I had an x-ray that did not show infiltrates, it showed cardiomegaly and mild pulmonary vascular congestion. Probably the pneumonia is getting better. 4. Diabetes. Continue with Lantus and pattern of blood sugar. 5. History of obstructive sleep apnea. Aware. 6. History of kidney transplant. This patient is on immunosuppressive medication. He has congenital kidney disease. No kidney injury at this moment. Continue with the same management. 7. Urinary tract infection. We have a positive result for Escherichia coli. Continue with medications. Basically this patient was admitted secondary to pneumonia, fever and sepsis, this patient has been on immunosuppressive medication secondary to kidney transplant. Infectious Disease Department and Pulmonary Department are following this patient. Probably this patient can be discharged in 1-2 days following the recommendations of Infectious Disease Department, this patient is stable at this moment. cc: Alonzo Mcgregor MD
--- NOTE | 2016-07-11 20:24 | PROGRESS NOTE ---
DATE: 07/11/2016 PRESENT ILLNESS: The patient is being treated for bilateral pneumonia. He also has an extended spectrum beta lactamase producing E. coli urinary tract infection. MEDICATIONS: Patient is receiving p.o. Zyvox and IV meropenem. This is day 6 of treatment with Zyvox and meropenem. PHYSICAL EXAMINATION: Vital Signs: Temperature is 98 degrees, pulse 93, respirations 18, blood pressure 156/60. General: This is a fairly healthy-appearing middle-aged male. He is in no acute distress. Lungs: Clear to auscultation. Cardiovascular: Heart rate is regular. Abdomen: Soft and nontender. A ureterostomy is in place. Neurologic: Patient is alert. He can move his extremities. There is no tremor. LAB AND X-RAY: Chest x-ray shows improved infiltrates. CBC shows a white count of 9190, hemoglobin 10.1, and platelet count 295,000. Creatinine 0.9. GFR is 60. ASSESSMENT AND PLAN: My plan is to have a PICC placed in the patient and consult [facility] to supply meropenem at home then I would plan to discharge the patient on meropenem and p.o. doxycycline and follow him up in the office for his pneumonia. COMORBIDITIES: Include he has a renal transplant and is on immunosuppressive medications. He has obstructive sleep apnea, COPD, peripheral vascular disease, gastroesophageal reflux disease and congenital kidney disease. cc: Ced Benton MD
[2016-07-11] MEDS: ZOCOR PO SCH (20:35)
[2016-07-11] MEDS: LANTUS SUBQ SCH (20:36)
[2016-07-12] MEDS: DUONEB (A & A) INH SCH ×6 (02:57→22:47)
[2016-07-12] MEDS: NS 1,000 ML IV SCH ×3 (06:06→22:26)
[2016-07-12] MEDS: MERREM 1 GM in NS 50 ML IV SCH ×3 (06:07→22:26)
[2016-07-12] MEDS: HUMALOG SUBQ SCH ×4 (06:08→22:26)
[2016-07-12] MEDS: PRILOSEC PO SCH (06:08)
[2016-07-12 06:25] LABS: MANUAL DIFF NEEDED? NO
[2016-07-12 06:30] LABS: INR 0.96
[2016-07-12 06:33] LABS: BASO% 0.1 % (0.0-0.8); EOS# 0.68 X1000 (0.0-0.7); EOS% 8.1 % (0.0-10.0); HEMOGLOBIN 9.7 g/dL (14.0-18.0); IMM GRAN# 0.14 X1000 (0.0-0.04); IMM GRAN% 1.7 % (0.0-0.5); MCH 25.1 PG (27-31); MCHC 31.3 g/dL (33-37); MCV 80.3 FL (81-99); MONO# 0.65 X1000 (0.11-0.59); MONO% 7.7 % (1.7-9.3); MPV 10.5 FL (7.4-10.4); NEUT% 63.4 % (42.2-75.2); PLT 346 X1000 (130-400); RBC 3.86 XMIL (4.7-6.1)
[2016-07-12 06:48] LABS: AGAP 10; BUN 23 mg/dL (8-22); CALCIUM 8.7 mg/dL (8.8-10.2); CHLORIDE 103 mmol/L (98-107); COSMO 273; POTASSIUM 4.2 mmol/L (3.5-5.1); SODIUM 133 mmol/L (136-145); TCO2 20 mmol/L (25-35)
--- NOTE | 2016-07-12 08:13 | Diag Imaging Result Document ---
PROCEDURE NAME: CHEST-2 VIEWS - 07/12/2016 FRONTAL AND LATERAL CHEST, TWO VIEWS: COMPARISON: 07/11/2016. FINDINGS: The heart remains enlarged. There are increased interstitial markings in the lungs. Small pleural effusions blunt the posterior gutters. Mild central vascular prominence persists. Improved aeration with partial clearing in the left base. IMPRESSION: Overall mild interval improvement.
[2016-07-12] MEDS ORDERED: NS 500 ML ONE (10:29)
[2016-07-12] MEDS: MIRALAX PO SCH (10:58)
[2016-07-12] MEDS: DAPSONE PO SCH (10:58)
[2016-07-12] MEDS: CELLCEPT PO SCH ×2 (10:59→20:07)
[2016-07-12] MEDS: ACTOS PO SCH (11:00)
[2016-07-12] MEDS: PROGRAF PO SCH ×2 (11:00→20:06)
[2016-07-12] MEDS: ZYVOX PO SCH ×2 (11:00→20:05)
[2016-07-12] MEDS: COLACE PO SCH ×2 (11:00→20:06)
[2016-07-12] MEDS: ASPIRIN PO SCH (11:01)
[2016-07-12] MEDS: TESSALON PO SCH ×3 (11:01→18:37)
[2016-07-12] MEDS: APRESOLINE PO SCH ×3 (11:01→18:37)
[2016-07-12] MEDS: PRINIVIL PO SCH ×2 (11:01→20:05)
--- NOTE | 2016-07-12 14:05 | CONSULTATION ---
DATE OF CONSULTATION: 07/12/2016 Case Nuñez is a 45-year-old white male, kidney transplant patient with a urostomy. Prior to his kidney transplant he was on dialysis. He has been admitted with urinary tract infection and pneumonia. He needs IV antibiotics. We were asked to place access because the PICC line was unsuccessful so that he can possibly receive antibiotics at home. This was at the request of Dr. Ced Benton. It appears that he will need 2 more weeks of IV antibiotics. PAST MEDICAL HISTORY: COPD, diabetes mellitus, sleep apnea, gastroesophageal reflux disease, peripheral vascular disease. MEDICATIONS: His antirejection medications. ALLERGIES: No known drug allergies. SOCIAL HISTORY: He continues to smoke. He does use alcohol. FAMILY HISTORY: Noncontributory. REVIEW OF SYSTEMS: A 14-point review of systems was performed and except for his shaking chills, fever, cough and shortness of breath on admission essentially negative. PHYSICAL EXAMINATION: General: Mr. Case Nuñez is a middle aged male overweight, a little bit of a vee facies. No jaundice. No oral lesions. No cervical or supraclavicular lymphadenopathy. Heart: Has a regular rate. Lungs: Are clear except for some crackles right lung. He has mild shortness of breath. No abdominal pain. Well healed incisions. No costovertebral tenderness. Rectal Exam: Was not performed. He does have palpable femoral pulses. He has no ischemic ulcers. No significant peripheral edema. Neurological: He has no focal deficits. IMPRESSION: 45-year-old white male, kidney transplant on chronic immunosuppression with evidence of pneumonia, need for IV antibiotics and we were asked to place access. cc: Brie Horn MD
[2016-07-12] MEDS ORDERED: XYLOCAINE 1%/EPI 1:100,000 ONE (14:32)
[2016-07-12] MEDS ORDERED: HEPARIN ONE (14:41)
[2016-07-12] MEDS ORDERED: DIPRIVAN 1% ONE (15:12)
--- NOTE | 2016-07-12 15:15 | OPERATIVE NOTE ---
PROCEDURE DATE: 07/12/2016 DATE OF SURGERY: 07/12/2016. PREOPERATIVE DIAGNOSES: 1. Need for long-term intravenous access for home antibiotics. 2. Pneumonia. 3. Immunocompromised kidney transplant patient. POSTOPERATIVE DIAGNOSES: 1. Need for long-term intravenous access for home antibiotics. 2. Pneumonia. 3. Immunocompromised kidney transplant patient. PRINCIPAL PROCEDURE: Left subclavian central venous line using fluoroscopy. SURGEON: Brie Horn MD. ANESTHESIA: Local. ESTIMATED BLOOD LOSS: 25 mL. DRAINS: None. INDICATIONS: Mr. Case Nuñez is a 45-year-old white male, who has a kidney transplant and is immunocompromised. He has been hospitalized with pneumonia and needs IV antibiotics. There are plans by Dr. Ced Benton to send the patient home and receive home antibiotics. We were asked to place access. A PICC line was unsuccessful. He has had multiple central venous line accesses because he was on hemodialysis prior to his transplant. DESCRIPTION OF PROCEDURE: The patient was brought to the operating room, placed in Trendelenburg, and his left neck and shoulder were prepped and draped within the sterile field. We used local anesthetic. I chose the left subclavian approach and, using an 18-gauge needle and directing it underneath the clavicle, I accessed the left subclavian vein easily on the first stick. I had trouble threading the guidewire, and therefore used fluoroscopy and changed to a Glidewire and was able to thread the wire into the superior vena cava. The needle was removed. We placed a dilator over the guidewire, and then an antibiotic-coated triple-lumen central venous line was placed over the guidewire into the superior vena cava. The tip was just barely in the superior vena cava because the central venous line was short. However, all 3 ports worked and we flushed them with heparin saline, and I secured the central venous line to the skin with 2-0 nylon stitches. Dressings were applied. He tolerated the procedure well. Plans are for him to go to the recovery room and then return to the floor. cc: Brie Horn MD
[2016-07-12] MEDS: LOVENOX SUBQ SCH (15:41)
--- NOTE | 2016-07-12 16:29 | Diag Imaging Result Document ---
PROCEDURE NAME: CHEST-PORTABLE - 07/12/2016 PORTABLE UPRIGHT CHEST: COMPARISON: Study performed earlier. FINDINGS: Interval placement of a left subclavian line. The tip overlies the upper superior vena cava. No pneumothorax. No other interval changes. IMPRESSION: No postprocedural pneumothorax.
[2016-07-12] MEDS: ZOCOR PO SCH (20:05)
[2016-07-12] MEDS: LANTUS SUBQ SCH (20:07)
--- NOTE | 2016-07-12 20:13 | DISCHARGE SUMMARY ---
ADMISSION DATE: 07/05/2016 DISCHARGE DATE: 07/12/2016 DATE OF ADMISSION: 07/23/2016. DATE OF DISCHARGE: 07/12/2016. CONSULTATIONS: 1. Dr. Ced Benton with Infectious Disease. 2. Dr. Fredis Prater with Pulmonology. 3. Dr. Hilton Horn with General Surgery. PERTINENT PROCEDURES: 1. Left subclavian central line, performed by Dr. Horn on 07/12/2016 under fluoroscopy. 2. Final chest x-ray showed overall mild improvement. DISCHARGE DIAGNOSES: 1. Sepsis secondary to bilateral pneumonia and ESBL producing E. coli urinary tract infection. The patient will be going home with p.o. antibiotics. Attempted a PICC line with failure. The patient underwent a central line placement of the left subclavian using fluoroscopic today by Dr. Horn. Sepsis has resolved. 2. Bilateral pneumonia. Continue IV antibiotics at home with [facility]. 3. ESBL E. coli urinary tract infection. Continue IV antibiotics, as per Dr. Ced Benton. 4. Hyponatremia. Slight improvement. No neuro status changes. 5. Diabetes mellitus. Continue home regimen. 6. Chronic obstructive pulmonary disorder. Aware. 7. Kidney transplant history. Continue immunosuppressives. HOSPITAL COURSE: Mr. Nuñez is a 45-year-old male with a history of: 1. Type 2 diabetes. 2. Peripheral vascular disease. 3. Hyperlipidemia. 4. Hypertension. 5. Renal transplant in 2004. Presented to the emergency department 48 hours of fever, chills, cough, shortness of breath. 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 The patient reported a fever higher than 102 at home. On arrival to the emergency department, his temperature was 102.4 degrees, heart rate of 118, saturations are 93%. A chest x-ray revealed a left upper lobe infiltrate and a white count of 15. Blood and urine cultures were obtained in the emergency department. He was given a liter of fluid bolus. Started on vancomycin and Zosyn and admitted for further evaluation and treatment, as well as placed on supplemental O2. Continued on IV hydration. His sodium was monitored closely. Dr. Ced Benton was consulted to help with antibiotics in a patient who is immunocompromised, as well as Dr. Prater. Started on bronchodilators as well as aggressive pulmonary toilet. The patient was set up for a PICC line for IV antibiotics. The patient also had an ESBL E. coli urinary tract infection. The patient will require IV antibiotics at home. They did attempt to place a PICC line. However, it was unsuccessful. So, he underwent a central line placement under fluoroscopy with Dr. Horn. [employer] was consulted for home health as well as [facility] to supply the IV antibiotics. The patient is appropriate for discharge home today. DISCHARGE VITALS: Temperature is 97.9 degrees, heart rate 81, blood pressure 157/69, O2 is 93% on 2 L nasal cannula. DISCHARGE DIET: Diabetic. DISCHARGE MEDICATIONS: Please see MAR, as per Dr. Dobson. The patient will continue on p.o. Zyvox as well and meropenem, per Dr. Ced Benton. FOLLOWUP CARE: 1. The patient is being discharged home with home health as well as IV home infusion. 2. The patient can return to the emergency department for any worsening of symptoms. TIME SPENT: Discharge time is 35 minutes. Dictated by CARLINE Lang for Bassam Bowden MD cc: Bassam Bowden MD MTDD
[2016-07-13] MEDS: DUONEB (A & A) INH SCH ×3 (03:21→11:37)
[2016-07-13 05:56] LABS: MANUAL DIFF NEEDED? NO
[2016-07-13] MEDS: PRILOSEC PO SCH (06:00)
[2016-07-13] MEDS: MERREM 1 GM in NS 50 ML IV SCH (06:00)
[2016-07-13] MEDS: HUMALOG SUBQ SCH ×2 (06:01→11:51)
[2016-07-13 06:02] LABS: BASO% 0.2 % (0.0-0.8); EOS# 0.75 X1000 (0.0-0.7); EOS% 6.7 % (0.0-10.0); HEMATOCRIT 30.8 % (42.0-52.0); HEMOGLOBIN 9.5 g/dL (14.0-18.0); IMM GRAN# 0.13 X1000 (0.0-0.04); IMM GRAN% 1.2 % (0.0-0.5); LYMPH# 2.08 X1000 (1.2-3.4); LYMPH% 18.5 % (20.5-51.1); MCH 25.3 PG (27-31); MCHC 30.8 g/dL (33-37); MCV 81.9 FL (81-99); MONO% 6.2 % (1.7-9.3); MPV 10.4 FL (7.4-10.4); NEUT% 67.2 % (42.2-75.2); PLT 380 X1000 (130-400); RBC 3.76 XMIL (4.7-6.1)
[2016-07-13 06:18] LABS: AGAP 9; ALBUMIN 2.7 g/dL (3.5-5.0); ALKALINE PHOSPHATASE 96 U/L (32-122); BUN 22 mg/dL (8-22); CALCIUM 8.9 mg/dL (8.8-10.2); CHLORIDE 105 mmol/L (98-107); COSMO 274; GOT 31 U/L (10-34); GPT 40 U/L (10-44); MAGNESIUM 1.5 mg/dL (1.5-2.7); POTASSIUM 4.6 mmol/L (3.5-5.1); SODIUM 136 mmol/L (136-145); TCO2 22 mmol/L (25-35); TOTAL BILIRUBIN 0.33 mg/dL (0.20-1.00); TOTAL PROTEIN 6.3 g/dL (6.3-8.3)
[2016-07-13] MEDS: ACTOS PO SCH (08:03)
[2016-07-13] MEDS: NS 1,000 ML IV SCH (08:03)
[2016-07-13] MEDS: APRESOLINE PO SCH ×2 (08:04→13:14)
[2016-07-13] MEDS: CELLCEPT PO SCH (08:04)
[2016-07-13] MEDS: TESSALON PO SCH ×2 (08:04→13:14)
[2016-07-13] MEDS: PROGRAF PO SCH (08:04)
[2016-07-13] MEDS: ZYVOX PO SCH (08:04)
[2016-07-13] MEDS: COLACE PO SCH (08:04)
[2016-07-13] MEDS: PRINIVIL PO SCH (08:04)
[2016-07-13] MEDS: ASPIRIN PO SCH (08:05)
[2016-07-13] MEDS: MIRALAX PO SCH (08:05)
[2016-07-13] MEDS: DAPSONE PO SCH (08:05)
[2016-07-13] MEDS ORDERED: EXTENSION SET 32 IN 4522 ONE (08:40)
[2016-07-13] MEDS ORDERED: ANESTHESIA PB SET 88 IN 5742 ONE (08:40)
[2016-07-13] MEDS ORDERED: LR 1,000 ML ONE (08:40)
[2016-07-13 09:54] VITALS: BP 170/69
[2016-07-13] MEDS: LOVENOX SUBQ SCH (13:14)
== END 2016-07-13 14:35 | disposition home health service (06) ==
LOC: P.ED 16:16 → P.MEDSURG 18:02 → SUATTDRO 18:02 → 3N 07-06 17:38
PROVIDERS: ATTEND Internal Medicine